=== PATIENT | male | born 1950 | race Caucasian/White ===

== ENCOUNTER 2018-01-12 06:54 | Day surgery (SDC) | payer OTHER ==
[~2018-01-12] VITALS: Ht 172.7 cm; Wt 79.5 kg
[~2018-01-12 06:54] MED LIST: BUSPAR7.5 MG PO; BUSPIRONE HCL7.5 MG PO; CYMBALTA60 MG PO; DURAGESIC75 MCG TD; ELAVIL10 MG PO; LOSARTAN-HCTZ1 EAC2 PO; MOTRIN600 MG PO; NAPROSYN500 MG PO; NORVASC10 MG PO; PROTONIX40 MG PO; SYNTHROID175 MCG PO
[2018-01-12 07:35] VITALS: BP 141/92
[2018-01-12 08:08] LABS: CHLORIDE 104 MEQ/L (99-109); CREATININE 0.9 MG/DL (0.6-1.3); GFR ESTIMATE (CALCULATED) > 59 mL/min/ (58.99-99999); GLUCOSE 99 mg/dL (70-99); POTASSIUM 3.7 MEQ/L (3.7-5.4); SODIUM 140 MEQ/L (136-147); UREA NITROGEN (BUN) 12 mg/dL (9-23)
[2018-01-12] MEDS ORDERED: NORCO 5/3251 TABLET PO (11:00)
[2018-01-12 11:30] VITALS: BP 126/61
[2018-01-12 12:12] VITALS: BP 122/68
== END 2018-01-12 12:15 | disposition home or self-care (01) ==
LOC: SDC 06:54
PROVIDERS: Surgery
PROC: 0JB90ZZ Excision of Buttock Subcutaneous Tissue and Fascia, Open Approach (ICD-10-PCS; principal; 2018-01-12)
DX: L05.91 Pilonidal cyst without abscess (principal); I10 Essential (primary) hypertension; E03.9 Hypothyroidism, unspecified; E78.4 Other hyperlipidemia; K21.0 Gastro-esophageal reflux disease with esophagitis; F32.9 Major depressive disorder, single episode, unspecified; G47.30 Sleep apnea, unspecified; F17.290 Nicotine dependence, other tobacco product, uncomplicated; Z88.2 Allergy status to sulfonamides
CPT/HCPCS: 80048; 88304; 93005; J0131; J0690; J1170; J3010; S0020